=== PATIENT | female | born 1970 | race American Indian/Alaskan Native ===

== ENCOUNTER 2020-07-20 17:36 | Emergency (ER) | payer SELFPAY ==
--- NOTE | 2020-07-20 18:08 | Event Note ---
ED Screening Note Date of service: 07/20/20 Time: 18:06 ED Screening Note: Is a 50-year-old female with a history of depression, schizophrenia and bipolar disorder who presents today with suicidal ideation and auditory hallucination with plans to jump off the bridge or take pills. Patient states she is not on any medication for her psych history. Patient states she has been on meds for a while. This initial assessment/diagnostic orders/clinical plan/treatment(s) is/are subject to change based on patients health status, clinical progression and re- assessment by fellow clinical providers in the ED. Further treatment and workup at subsequent clinical providers discretion. Patient/guardian urged not to elope from the ED as their condition may be serious if not clinically assessed and managed. Initial orders include: Labs, Psych eval
[2020-07-20] MEDS ORDERED: amLODIPine 5 MG TAB PO ONE (18:42)
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
[2020-07-20 18:51] LABS: Blood Urea Nitrogen 9 mg/dL (7-17); Calcium 8.6 mg/dL (8.4-10.2); Hemolysis Index 6
[2020-07-20 18:54] LABS: BUN/Creatinine Ratio 13; Basophils % (Auto) 0.9 % (0.0-1.8); Hematocrit 37.5 % (30.3-42.9); Hemoglobin 12.4 gm/dl (10.1-14.3); Lymphocytes # (Auto) 1.4 K/mm3 (1.2-5.4); Lymphocytes % (Auto) 30.1 % (13.4-35.0); Mean Corpuscular HGB Conc 33 % (30-34); Mean Corpuscular Volume 81 fl (79-97); Monocytes # (Auto) 0.4 K/mm3 (0.0-0.8); Monocytes % (Auto) 8.7 % (0.0-7.3); Platelet Count 231 K/mm3 (140-440); Red Blood Count 4.63 M/mm3 (3.65-5.03); Red Cell Distribution Width 15.5 % (13.2-15.2)
[2020-07-20] MEDS ORDERED: INSULIN REGULAR, HUMAN 100 UNITS/1 ML IV ONE ×2 (19:15→19:44)
[2020-07-20] MEDS ORDERED: SODIUM CHLORIDE 0.9% 1000 ML 1,000 ML IV ONE ×2 (19:16→19:46)
[2020-07-20 19:53] LABS: Bilirubin,Urine NEG (Negative); Blood,Urine NEG (Negative); Color,Urine Yellow (Yellow); Mucus,Urine FEW /HPF; Protein,Urine <15 mg/dL mg/dL (Negative); WBC,Urine < 1.0 /HPF (0.0-6.0)
[2020-07-20 20:00] LABS: Amphetamine Screen,Urine Negative; Benzodiazepines Screen,Urine Negative; Methadone Screen,Urine Negative; Opiate Screen,Urine Negative
[2020-07-20 20:25] LABS: Cannabinoid Screen,Urine Positive; Cocaine Screen,Urine Positive
[2020-07-20] MEDS ORDERED: INSULIN GLARGINE 100 UNITS/ML SUB-Q SCH (22:00)
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
[2020-07-21] MEDS: INSULIN NPH/REGULAR 70/30 INJ SUB-Q SCH ×2 (09:55→16:35)
[2020-07-21] MEDS: SERTRALINE 25 MG TAB PO SCH (10:15)
[2020-07-21] MEDS: DIVALPROEX DR 125 MG TAB PO SCH ×2 (10:15→22:36)
[2020-07-21] MEDS ORDERED: INSULIN GLARGINE 100 UNITS/ML SUB-Q SCH (22:00)
[2020-07-21] MEDS: traZODone 50 MG TAB PO SCH (22:36)
[2020-07-22] MEDS: INSULIN NPH/REGULAR 70/30 INJ SUB-Q SCH ×2 (08:36→17:13)
--- NOTE | 2020-07-22 10:18 | Progress Note ---
Subjective - Reason for Consult Consult date: 07/22/20 Reason for consult: depression, SI - Chief Complaint Chief complaint: The patient is lying down resting. She appears irritable. She says she's been having back pain for three days. She verbalizes feeling depressed and having a plan to take pills to kill herself. The patient says she's "hearing little voices I can't understand." REVIEW OF SYSTEMS Constitutional: Negative for weight loss ENT: Negative for stridor Respiratory: Negative for cough or hemoptysis All other systems reviewed and are negative MENTAL STATUS EXAMINATION General Appearance and Behavior: Age appropriate, good hygiene, wearing appropriate clothes, good eye contact, cooperative, irritable Cooperation: Participating/engaged Psychomotor Behavior: unremarkable and within normal limits Mood: Depressed Affect and affective range: congruent with mood Thought Process: Fluent/Logical Thought Content: hallucinations, SI, hopelessness Speech: Normal volume, Regular rate and rhythm Suicidal Ideation: Yes Homicidal Ideation: Denies HI Hallucinations: Auditory, and tactile Impulse Control: Unimpaired Insight and Judgment: Limited insight and judgment, Memory: Normal Attention: Normal Orientation: Alert, oriented Assessment Bipolar Disorder Cocaine Dependence Treatment Plan 1013 Increased Zyprexa 5mg po daily Increased Depakote DR 250mg po BID Sitter: Defer to primary Medical: Per primary Disposition: Recommend acute inpatient treatment Will follow Case discussed with Dr. Sanchez Mental Status Exam - Vital signs Last Vital Signs Temp 97.7 F 07/22/20 08:20 Pulse 85 07/22/20 08:20 Resp 18 07/22/20 09:29 BP 128/87 07/22/20 08:20 Pulse Ox 98 07/22/20 09:29
[2020-07-22] MEDS: DIVALPROEX DR 125 MG TAB PO SCH (11:05)
[2020-07-22] MEDS: SERTRALINE 25 MG TAB PO SCH (11:12)
[2020-07-22] MEDS: DIVALPROEX DR 250 MG TAB PO SCH ×2 (11:12→22:08)
[2020-07-22] MEDS ORDERED: IBUPROFEN 800 MG TAB PO ONE ×2 (16:41→20:48)
[2020-07-22] MEDS ORDERED: INSULIN GLARGINE 100 UNITS/ML SUB-Q SCH (22:00)
[2020-07-22] MEDS: traZODone 50 MG TAB PO SCH (22:09)
[2020-07-23] MEDS ORDERED: LISINOPRIL 20 MG TAB PO ONE (00:06)
[2020-07-23] MEDS ORDERED: amLODIPine 5 MG TAB PO ONE (00:06)
[2020-07-23] MEDS ORDERED: INSULIN NPH/REGULAR 70/30 INJ SUB-Q SCH (08:00)
--- NOTE | 2020-07-23 08:31 | Progress Note ---
Subjective - Reason for Consult Consult date: 07/23/20 Reason for consult: SI - Chief Complaint Chief complaint: The patient is lying down resting. She says she's feeling better. The patient asks about going to [employer]. She still verbalizes "depression and not wanting to live." She says "but I do feel better." She says "things are just not right." She denies hallucinations of any kind at present, but says at times "still hear the little voices." The patient states, "I really need some help.: REVIEW OF SYSTEMS Constitutional: Negative for weight loss ENT: Negative for stridor Respiratory: Negative for cough or hemoptysis All other systems reviewed and are negative MENTAL STATUS EXAMINATION General Appearance and Behavior: Age appropriate, good hygiene, wearing appropriate clothes, good eye contact, cooperative, irritable Cooperation: Participating/engaged Psychomotor Behavior: unremarkable and within normal limits Mood: Depressed Affect and affective range: congruent with mood Thought Process: Fluent/Logical Thought Content: hallucinations, SI, hopelessness Speech: Normal volume, Regular rate and rhythm Suicidal Ideation: Yes Homicidal Ideation: Denies HI Hallucinations: Auditory, and tactile Impulse Control: Unimpaired Insight and Judgment: Limited insight and judgment, Memory: Normal Attention: Normal Orientation: Alert, oriented Assessment Bipolar Disorder Cocaine Dependence Treatment Plan 1013 Increased Zyprexa 5mg po daily Increased Depakote DR 250mg po BID Sitter: Defer to primary Medical: Per primary Disposition: Recommend acute inpatient treatment Will follow Case discussed with Dr. Sanchez Mental Status Exam - Vital signs Last Vital Signs Temp 98.4 F 07/22/20 20:27 Pulse 72 07/22/20 20:27 Resp 16 07/22/20 20:27 BP 185/66 07/22/20 20:27 Pulse Ox 96 07/22/20 20:27
[2020-07-23] MEDS ORDERED: amLODIPine 10 MG TAB PO SCH (10:00)
[2020-07-23] MEDS ORDERED: LISINOPRIL 20 MG TAB PO SCH (10:00)
[2020-07-23] MEDS: SERTRALINE 25 MG TAB PO SCH (10:06)
[2020-07-23] MEDS: DIVALPROEX DR 250 MG TAB PO SCH (10:06)
[2020-07-23 12:43] VITALS: BP 151/70
== END 2020-07-23 12:43 | disposition other institution (70) ==
LOC: ED 17:36
DX: F25.0 Schizoaffective disorder, bipolar type (principal); F19.10 Other psychoactive substance abuse, uncomplicated; I10 Essential (primary) hypertension; E11.9 Type 2 diabetes mellitus without complications; Z79.899 Other long term (current) drug therapy; Z20.822 Contact with and (suspected) exposure to COVID-19
CPT/HCPCS: 36415; 80048; 80307; 81001; 82962; 85025; 96361; 96372; 96374; 99285; J7030; U0003; 80320; G0480; J1815

== ENCOUNTER 2021-11-19 11:42 | Emergency (ER) | payer SELFPAY ==
[2021-11-20 07:50] LABS: Basophils % (Auto) 0.8 % (0.0-1.8); Eosinophils # (Auto) 0.1 K/mm3 (0.0-0.4); Eosinophils % (Auto) 2.2 % (0.0-4.3); Hemoglobin 13.7 gm/dl (10.1-14.3); Lymphocytes # (Auto) 0.6 K/mm3 (1.2-5.4); Lymphocytes % (Auto) 24.5 % (13.4-35.0); Mean Corpuscular HGB Conc 33 % (30-34); Mean Corpuscular Volume 82 fl (79-97); Monocytes # (Auto) 0.4 K/mm3 (0.0-0.8); Monocytes % (Auto) 13.9 % (0.0-7.3); Platelet Count 237 K/mm3 (140-440); Red Blood Count 5.11 M/mm3 (3.65-5.03); Red Cell Distribution Width 14.5 % (13.2-15.2)
[2021-11-20 08:08] LABS: Alanine Aminotransferase 14 units/L (7-56); Albumin 4.1 g/dL (3.9-5); BUN/Creatinine Ratio 14; Blood Urea Nitrogen 7 mg/dL (7-17); Calcium 8.8 mg/dL (8.4-10.2); Hemolysis Index 6
--- NOTE | 2021-11-20 08:10 | Emergency Department Report ---
ED Psych HPI - General Chief Complaint: Skin Rash Stated Complaint: INFESTATION Time Seen by Provider: 11/20/21 07:05 Source: patient Mode of arrival: Ambulatory - History of Present Illness Initial Comments: 51 yo F with history of schizophrenia, anxiety and depression who now presents with suicidal and homicidal ideation that has been going on intermittently for the last 3 months. When asked about plan she said I was going to overdose on my friends medication. Patient also reports some diffuse rash all over her body for the last 2 months. No fever or chills reported. No other modifying or associated factors reported. MD Complaint: suicidal ideation - Related Data Previous Rx's Medication Instructions Recorded Last Taken Type OLANZapine [Olanzapine] 5 mg PO DAILY #30 11/22/21 Unknown Rx Sertraline [Zoloft] 25 mg PO QDAY #30 tab 11/22/21 Unknown Rx traZODone [Desyrel] 50 mg PO QHS #30 tab 11/22/21 Unknown Rx Allergies Allergy/AdvReac Type Severity Reaction Status Date / Time No Known Allergies Allergy Unverified 07/20/20 17:58 ED Review of Systems ROS: Stated complaint: INFESTATION Other details as noted in HPI Comment: All other systems reviewed and negative Skin: rash, pruritus Psychiatric: homicidal thoughts, suicidal thoughts ED Past Medical Hx - Past Medical History Hx Hypertension: Yes Hx Diabetes: Yes Hx Psychiatric Treatment: Yes (BIPOLAR, SCHIZOPHRENIC DEPRESSION BODERLINE PERSONALITY) - Surgical History Additional Surgical History: CSECTION/ SMALL INTESTINE - Social History Smoking Status: Current Every Day Smoker - Medications Home Medications: Home Medications Medication Instructions Recorded Confirmed Last Taken Type OLANZapine [Olanzapine] 5 mg PO DAILY #30 11/22/21 Unknown Rx Sertraline [Zoloft] 25 mg PO QDAY #30 tab 11/22/21 Unknown Rx traZODone [Desyrel] 50 mg PO QHS #30 tab 11/22/21 Unknown Rx ED Physical Exam - General Limitations: No Limitations General appearance: alert, in no apparent distress - Head Head exam: Present: normal inspection - Eye Pupils: Present: normal accommodation - ENT ENT exam: Present: normal exam, normal orophraynx, mucous membranes moist - Neck Neck exam: Present: normal inspection - Respiratory Respiratory exam: Present: normal lung sounds bilaterally. Absent: respiratory distress, accessory muscle use - Cardiovascular Cardiovascular Exam: Present: regular rate, normal rhythm - GI/Abdominal GI/Abdominal exam: Present: soft. Absent: tenderness - Back Exam Back exam: Present: normal inspection - Neurological Exam Neurological exam: Present: alert, oriented X3 - Psychiatric Psychiatric exam: Present: normal affect, normal mood - Skin Skin exam: Present: rash (over the body except face) ED Course Vital Signs 11/19/21 11/20/21 11/20/21 12:17 10:04 13:35 Temperature 97.8 F 98.2 F Pulse Rate 78 70 Respiratory 16 16 19 Rate Blood Pressure 173/71 Blood Pressure 170/72 [Left] O2 Sat by Pulse 100 98 100 Oximetry 11/20/21 11/21/21 11/21/21 15:29 20:52 23:30 Temperature 97.9 F 98.9 F Pulse Rate 69 70 Respiratory 14 18 Rate Blood Pressure Blood Pressure 144/71 146/81 [Left] O2 Sat by Pulse 99 99 99 Oximetry 11/22/21 08:50 Temperature 98.6 F Pulse Rate 70 Respiratory 14 Rate Blood Pressure Blood Pressure 135/65 [Left] O2 Sat by Pulse 99 Oximetry - Reevaluation(s) Reevaluation #1: 11/20/21 08:13 Si/HI and rash consistent with scabies--will order routine psych labs including UDS and CBC, CMP and UA for any correctable cause- 11/20/21 12:02 Lab reviewed and noted to be wnl except slightly low wbc -- will continue to monitor and this patient is cleared medication at this time. Pt will be treated with ivermectin 200 mcg/kg PO x 1-- pt will needed to be treated for 1, 2, 8, 9, and day 15. for a total of 5 doses. Noticed Ivermectin is not available so will go ahead and treat with topical permethrim topical. 11/20/21 12:06 11/20/21 12:09 ED Medical Decision Making - Lab Data Result diagrams: 11/20/21 06:50 11/20/21 06:50 Critical care attestation.: If time is entered above; I have spent that time in minutes in the direct care of this critically ill patient, excluding procedure time. ED Disposition Clinical Impression: Scabies infestation Suicide Qualifiers: Encounter type: initial encounter Qualified Code(s): X83.8XXA - Intentional self-harm by other specified means, initial encounter Disposition: 01 HOME / SELF CARE / HOMELESS Is pt being admited?: No Does the pt Need Aspirin: No Condition: Stable Additional Instructions: CT CRISIS LINE AND ACCESS NUMBER: [phone] Call 911 in emergency OUTPATIENT MENTAL HEALTH PROVIDERS: [facility]: [address] [place] [address] [phone] [facility]: [address] [place], [place] [id number] [phone] Prescriptions: traZODone [Desyrel] 50 mg PO QHS #30 tab OLANZapine [Olanzapine] 5 mg PO DAILY #30 Sertraline [Zoloft] 25 mg PO QDAY #30 tab Referrals: JOSH SWAIN MD [Primary Care Provider] - 3-5 Days Time of Disposition: 20:21 (pt discharged to home today after clearance by the psych team)
[2021-11-20] MEDS ORDERED: PERMETHRIN 5% CREAM 60 GM TP ONE (12:07)
--- NOTE | 2021-11-20 12:41 | Consultation ---
History of Present Illness - Reason for Consult Consult date: 11/20/21 Reason for consult: suicidal ideation - History of Present Psychiatric Illness HPI: 51 yo F with history of schizophrenia, anxiety and depression who now presents with suicidal and homicidal ideation that has been going on intermittently for the last 3 months. When asked about plan she said I was going to overdose on my friends medication. Patient also reports some diffuse rash all over her body for the last 2 months. No fever or chills reported. No other modifying or associated factors reported. The patient is a 51 year old female with history of Bipolar, schizophrenia, and borderline personality disorder who presents to the ED with suicidal ideation. The patient was seen today. She is calm, alert and oriented x3. The patient states that she has suicidal/homicidal " name it." She reports being noncompliant with psychotropic medications, states she last took meds about 2 years ago. She endorses suicidal ideation with no specific plan and auditory hallucinations " I don't know what the voices are saying." PAST PSYCHIATRIC HISTORY: Diagnoses: Bipolar, schizophrenia, borderline personality disorder Suicide attempts or Self-harm behavior: Denies Prior psychiatric hospitalizations: Yes Substance Abuse history: Alcohol and cocaine Previous psychiatric medications tried: Respiratory Outpatient treatment: None report PAST MEDICAL HISTORY: cardiac arrhythmia, diabetes, gout, thyroid issues Family Psychiatric History: None reported or documented SOCIAL HISTORY Marital Status: Living Arrangements: with someone Employment Status: Unemployed Access to guns/weapons: Denies Education: High school History of Abuse: None reported Legal History: None reported REVIEW OF SYSTEMS Constitutional: Negative for weight loss ENT: Negative for stridor Respiratory: Negative for cough or hemoptysis All other systems reviewed and are negative MENTAL STATUS EXAMINATION General Appearance and Behavior: Age appropriate, good hygiene, wearing appropriate clothes, good eye contact, cooperative, irritable Cooperation: Participating/engaged Psychomotor Behavior: unremarkable and within normal limits Mood: Depressed Affect and affective range: congruent with mood Thought Process: Goal directed Thought Content: Hallucinations, SI, hopelessness Speech: Normal volume, Regular rate and rhythm Suicidal Ideation: Yes Homicidal Ideation: Denies HI Hallucinations: Auditory Impulse Control: Unimpaired Insight and Judgment: Limited insight and judgment, Memory: Normal Attention: Normal Orientation: Alert, oriented Assessment Bipolar Disorder Cocaine Use Disorder Treatment Plan 1013 Zyprexa 5mg po daily Trazodone 50m po qhs Zoloft 25mg po daily Sitter: Defer to primary Medical: Per primary Disposition: Recommend acute inpatient treatment Will follow Case discussed with Dr. Sanchez Medications and Allergies Allergies Allergy/AdvReac Type Severity Reaction Status Date / Time No Known Allergies Allergy Unverified 07/20/20 17:58 Mental Status Exam - Vital signs Last Vital Signs Temp 98.2 F 11/20/21 10:04 Pulse 70 11/20/21 10:04 Resp 16 11/20/21 10:04 BP 170/72 11/20/21 10:04 Pulse Ox 98 11/20/21 10:04 Results Result Diagrams: 11/20/21 06:50 11/20/21 06:50 Abnormal lab results 11/20/21 11/20/21 11/20/21 Range/Units 06:50 06:50 06:50 WBC 2.6 L (4.5-11.0) K/mm3 RBC 5.11 H (3.65-5.03) M/mm3 MCH 27 L (28-32) pg [place] % (Auto) 13.9 H (0.0-7.3) % Lymph # (Auto) 0.6 L (1.2-5.4) K/mm3 Seg Neutrophils # 1.6 L (1.8-7.7) K/mm3 Potassium (3.6-5.0) mmol/L Creatinine (0.6-1.2) mg/dL Glucose (65-100) mg/dL Salicylates < 0.3 L (2.8-20.0) mg/dL Acetaminophen 5.0 L (10.0-30.0) ug/mL 11/20/21 Range/Units 06:50 WBC (4.5-11.0) K/mm3 RBC (3.65-5.03) M/mm3 MCH (28-32) pg [place] % (Auto) (0.0-7.3) % Lymph # (Auto) (1.2-5.4) K/mm3 Seg Neutrophils # (1.8-7.7) K/mm3 Potassium 3.4 L (3.6-5.0) mmol/L Creatinine 0.5 L (0.6-1.2) mg/dL Glucose 149 H (65-100) mg/dL Salicylates (2.8-20.0) mg/dL Acetaminophen (10.0-30.0) ug/mL All other labs normal.
[2021-11-20] MEDS: SERTRALINE 25 MG TAB PO SCH (14:31)
[2021-11-20] MEDS ORDERED: traZODone 50 MG TAB PO SCH (22:00)
--- NOTE | 2021-11-21 09:46 | Progress Note ---
Subjective - Reason for Consult Consult date: 11/21/21 Reason for consult: mental health evaluation - Chief Complaint Chief complaint: The patient was seen this morning. The patient seems angry, agitated. The was loud states " how do you think I feel." Will continue recommending inpatient. REVIEW OF SYSTEMS Constitutional: Negative for weight loss ENT: Negative for stridor Respiratory: Negative for cough or hemoptysis All other systems reviewed and are negative MENTAL STATUS EXAMINATION General Appearance and Behavior: Age appropriate, good hygiene, wearing a ppropriate clothes, good eye contact, cooperative, irritable Cooperation: Participating/engaged Psychomotor Behavior: unremarkable and within normal limits Mood: Depressed Affect and affective range: congruent with mood Thought Process: Goal directed Thought Content: Hallucinations, SI, hopelessness Speech: Normal volume, Regular rate and rhythm Suicidal Ideation: Yes Homicidal Ideation: Denies HI Hallucinations: Auditory Impulse Control: Unimpaired Insight and Judgment: Limited insight and judgment, Memory: Normal Attention: Normal Orientation: Alert, oriented Assessment Bipolar Disorder Cocaine Use Disorder Treatment Plan 1013 Zyprexa 5mg po daily Trazodone 50m po qhs Zoloft 25mg po daily Sitter: Defer to primary Medical: Per primary Disposition: Recommend acute inpatient treatment Will follow Case discussed with Dr. Sanchez Medications and Allergies Mental Status Exam - Vital signs Last Vital Signs Temp 97.9 F 11/20/21 15:29 Pulse 69 11/20/21 15:29 Resp 14 11/20/21 15:29 BP 144/71 11/20/21 15:29 Pulse Ox 99 11/20/21 15:29
[2021-11-21] MEDS: SERTRALINE 25 MG TAB PO SCH (11:56)
--- NOTE | 2021-11-21 13:17 | Event Note ---
Date: 11/21/21 Pt continue to refuse to wash off the permethrin topical. She has no c/o this AM. Seen by Psych and recommend to continue 1013.
[2021-11-22 08:56] VITALS: BP 135/65
[2021-11-22] MEDS: SERTRALINE 25 MG TAB PO SCH (09:41)
--- NOTE | 2021-11-22 12:14 | Progress Note ---
Subjective - Reason for Consult Consult date: 11/22/21 Reason for consult: SI - Chief Complaint Chief complaint: The patient was seen this morning. The patient says she came in because she was feeling suicidal. She says "but I'm not having those thoughts anymore." She says she has been off meds for "about 6 or 7 years." She says she was on haldol. When asking the patient why was she off, she says "I just didn't take them." When asking the patient about any voices or hallucinations she says "voices sometimes. They not saying nothing much now, just want me to drink." The patient no longer meets criteria for inpatient psych treatment. She can be m anaged on an outpatient basis. REVIEW OF SYSTEMS Constitutional: Negative for weight loss ENT: Negative for stridor Respiratory: Negative for cough or hemoptysis All other systems reviewed and are negative MENTAL STATUS EXAMINATION General Appearance and Behavior: Age appropriate, good hygiene, wearing appropriate clothes, good eye contact, cooperative, irritable Cooperation: Participating/engaged Psychomotor Behavior: unremarkable and within normal limits Mood: Depressed Affect and affective range: congruent with mood Thought Process: Goal directed Thought Content: Hallucinations, SI, hopelessness Speech: Normal volume, Regular rate and rhythm Suicidal Ideation: Yes Homicidal Ideation: Denies HI Hallucinations: Auditory Impulse Control: Unimpaired Insight and Judgment: Limited insight and judgment, Memory: Normal Attention: Normal Orientation: Alert, oriented Assessment Bipolar Disorder Cocaine Use Disorder Treatment Plan d/c 1013 Zyprexa 5mg po daily Trazodone 50m po qhs Zoloft 25mg po daily Sitter: Defer to primary Medical: Per primary Disposition: Do not recommend acute inpatient psych treatment. The patient understands that if SI/HI arise she is to seek immediate assistance Rd Project Manager to further discuss safety plan and give all necessary outpatient resources, including rehab The patient to abstain from all illicit drug use and alcohol Will sign off. Thanks Case discussed with Dr. Sanchez Mental Status Exam - Vital signs Last Vital Signs Temp 98.6 F 11/22/21 08:50 Pulse 70 11/22/21 08:50 Resp 14 11/22/21 08:50 BP 135/65 11/22/21 08:50 Pulse Ox 99 11/22/21 08:50
--- NOTE | 2021-11-22 13:26 | Event Note ---
Date: 11/22/21 Pt seen this morning and denies any thought of suicide or homicidal ideation. Pt also seen by the psychiatry team and her 1013 was discontinued. Will have patient discharge home to close follow up with her PCP.
== END 2021-11-22 14:08 | disposition home or self-care (01) ==
LOC: EEVIPCON 11:42 → ED 11:42
DX: R45.851 Suicidal ideations (principal); R45.850 Homicidal ideations; B86 Scabies; F31.9 Bipolar disorder, unspecified; F20.9 Schizophrenia, unspecified; I10 Essential (primary) hypertension; E11.9 Type 2 diabetes mellitus without complications; F17.200 Nicotine dependence, unspecified, uncomplicated; Z98.890 Other specified postprocedural states
CPT/HCPCS: 36415; 80053; 80320; 85025; 99284; G0480

== ENCOUNTER 2021-12-27 10:00 | Emergency (ER) | payer SELFPAY ==
[2021-12-27] MEDS ORDERED: HALOPERIDOL LACTATE 5 MG/1 ML INJ IM ONE (10:15)
--- NOTE | 2021-12-27 14:27 | Emergency Department Report ---
ED General Adult HPI - General Chief complaint: Abdominal Pain Stated complaint: BUGS IN SKIN/POPPIN IN HEAD Time Seen by Provider: 12/27/21 10:10 Source: patient Mode of arrival: Ambulatory Limitations: No Limitations - History of Present Illness Initial comments: insomnia and popping in head noise after cocaine use. +abdominal pain pt is here by EMS , had crack cocaine yesterday and started hearing noises in her head and itching all over, she [place] and she was told it was insect bite or chiggers -: Gradual, days(s) Location: chest, abdomen, upper extremity, lower extremity Radiation: non-radiation Severity scale (0 -10): 0 Quality: other (itching) Improves with: none Worsens with: none Associated Symptoms: denies: denies other symptoms, confusion, chest pain, cough, diaphoresis, headaches, loss of appetite - Related Data Previous Rx's Medication Instructions Recorded Last Taken Type OLANZapine [Olanzapine] 5 mg PO DAILY #30 11/22/21 Unknown Rx Sertraline [Zoloft] 25 mg PO QDAY #30 tab 11/22/21 Unknown Rx traZODone [Desyrel] 50 mg PO QHS #30 tab 11/22/21 Unknown Rx Allergies Allergy/AdvReac Type Severity Reaction Status Date / Time No Known Allergies Allergy Verified 12/27/21 10:08 ED Review of Systems ROS: Stated complaint: BUGS IN SKIN/POPPIN IN HEAD Other details as noted in HPI Constitutional: denies: chills, fever Eyes: denies: eye pain, eye discharge, vision change ENT: denies: ear pain, throat pain Respiratory: denies: cough, shortness of breath, wheezing Cardiovascular: denies: chest pain, palpitations Endocrine: no symptoms reported Gastrointestinal: denies: abdominal pain, nausea, diarrhea Genitourinary: denies: urgency, dysuria, discharge Musculoskeletal: denies: back pain, joint swelling, arthralgia Skin: denies: rash, lesions Neurological: denies: headache, weakness, paresthesias Psychiatric: denies: anxiety, depression Hematological/Lymphatic: denies: easy bleeding, easy bruising ED Past Medical Hx - Past Medical History Hx Hypertension: Yes Hx Diabetes: Yes Hx Psychiatric Treatment: Yes (BIPOLAR, SCHIZOPHRENIC DEPRESSION BODERLINE PERSONALITY) - Surgical History Additional Surgical History: CSECTION/ SMALL INTESTINE - Social History Smoking Status: Current Every Day Smoker - Medications Home Medications: Home Medications Medication Instructions Recorded Confirmed Last Taken Type OLANZapine [Olanzapine] 5 mg PO DAILY #30 11/22/21 Unknown Rx Sertraline [Zoloft] 25 mg PO QDAY #30 tab 11/22/21 Unknown Rx traZODone [Desyrel] 50 mg PO QHS #30 tab 11/22/21 Unknown Rx ED Physical Exam - General Limitations: No Limitations General appearance: alert, anxious - Head Head exam: Present: atraumatic, normocephalic - Eye Eye exam: Present: normal appearance - ENT ENT exam: Present: mucous membranes moist - Neck Neck exam: Present: normal inspection - Respiratory Respiratory exam: Present: normal lung sounds bilaterally. Absent: respiratory distress - Cardiovascular Cardiovascular Exam: Present: regular rate, normal rhythm. Absent: systolic murmur, diastolic murmur, rubs, gallop - GI/Abdominal GI/Abdominal exam: Present: soft, normal bowel sounds - Extremities Exam Extremities exam: Present: normal inspection - Back Exam Back exam: Present: normal inspection - Neurological Exam Neurological exam: Present: alert, oriented X3 - Psychiatric Psychiatric exam: Present: normal affect, normal mood - Skin Skin exam: Present: rash, other (drug rash ) - Expanded Skin Exam Expanded Type of lesion: Present: rash Distribution of rash: generalized, chest, RUE, LUE, RLE, LLE Description of rash: Present: vesicular, confluent, crusting ED Course Vital Signs 12/27/21 12/27/21 12/27/21 10:05 10:25 12:28 Temperature 98.1 F Pulse Rate 88 Respiratory 18 Rate Blood Pressure 172/72 [Right] O2 Sat by Pulse 99 100 100 Oximetry 12/27/21 12:31 Temperature Pulse Rate 65 Respiratory Rate Blood Pressure 137/85 [Right] O2 Sat by Pulse Oximetry ED Medical Decision Making - Medical Decision Making rash seems like drug eruption from substance abuse, pt seems very agotated and insultive , haldol givenw ith good results Critical care attestation.: If time is entered above; I have spent that time in minutes in the direct care of this critically ill patient, excluding procedure time. ED Disposition Clinical Impression: Cocaine abuse, Substance abuse Disposition: 01 HOME / SELF CARE / HOMELESS Is pt being admited?: No Does the pt Need Aspirin: No Condition: Stable Instructions: Abdominal Pain (ED), Substance Use Disorder and Mental Illness Referrals: JOSH SWAIN MD [Primary Care Provider] - 3-5 Days
[2021-12-27 14:28] VITALS: BP 167/77
== END 2021-12-27 15:25 | disposition home or self-care (01) ==
LOC: ED 10:00
DX: F14.10 Cocaine abuse, uncomplicated (principal); F19.10 Other psychoactive substance abuse, uncomplicated; I10 Essential (primary) hypertension; E11.9 Type 2 diabetes mellitus without complications; F31.9 Bipolar disorder, unspecified; F17.200 Nicotine dependence, unspecified, uncomplicated
CPT/HCPCS: 96372; 99282; J1630